=== PATIENT | female | born 1980 ===

== ENCOUNTER 2016-08-30 19:06 | Inpatient (IN) | payer SELFPAY ==
[2016-08-30] MEDS ORDERED: Albuterol-Ipratrop 3 mg / 0.5 (3 ml) UD INH STA ×2 (19:32→19:37)
[2016-08-30 20:08] LABS: BASO % 0.3 % (0.0-2.0); EOS # 0.3 K/uL (0.0-0.7); HEMATOCRIT 38.3 % (34.0-47.0); LYMPH # 0.9 K/uL (1.0-4.3); LYMPH % 6.8 % (20.0-40.0); MEAN CELL VOLUME 87.5 fl (81.0-99.0); MEAN CORPUSCULAR HEMOGLOBIN 28.6 pg (27.0-31.0); MEAN CORPUSCULAR HGB CONC 32.7 g/dL (33.0-37.0); MEAN PLATELET VOLUME 8.7 fl (7.2-11.7); MONO # 0.5 K/uL (0.0-0.8); MONO % 3.8 % (0.0-10.0); NEUT # 11.3 K/uL (1.8-7.0); NEUT % 87.1 % (50.0-75.0); PLATELET COUNT 221 K/uL (130-400); RED CELL DISTRIBUTION WIDTH 13.6 % (11.5-14.5)
[2016-08-30 20:17] LABS: ALKALINE PHOSPHATASE 76 U/L (38-126); ALT/SGPT 39 U/L (9-52); AST/SGOT 26 U/L (14-36); BILIRUBIN,TOTAL 0.4 mg/dl (0.2-1.3); BLOOD UREA NITROGEN 12 mg/dl (7-17); CALCIUM 8.7 mg/dL (8.4-10.2); CARBON DIOXIDE 25 mmol/L (22-30); CHLORIDE 104 mmol/L (98-107); GFR AFRICAN-AMERICAN > 60; GLUCOSE,RANDOM 122 mg/dL (65-105); POTASSIUM 3.5 MMOL/L (3.6-5.0); SODIUM 141 mmol/l (132-148); TOTAL PROTEIN 7.3 G/DL (6.3-8.2)
--- NOTE | 2016-08-30 21:13 | ED PDOC ---
HPI: SOB/CHF/COPD Time Seen by Provider: 08/30/16 19:18 Chief Complaint (Nursing): Shortness Of Breath Chief Complaint (Provider): Shortness of breath History Per: Patient History/Exam Limitations: no limitations Onset/Duration Of Symptoms: Days (1x) Current Symptoms Are (Timing): Still Present Current Respiratory Medications: Albuterol, Other (ventolin pump) Severity: Moderate Associated Symptoms: denies: Chest Pain (chest tightness) Additional Complaint(s): 35 year old female with a pertinent medical history of asthma presents to the ED with complaints of shortness of breath and wheezing that started 24x hours ago and is worsening. She states that she has not had an asthma exacerbation in years and she has been using her ventolin pump and albuterol medication with no relief. She has associated symptoms of a fever and dry cough , and chest tightness. She denies having nausea, vomiting, or diarrhea. Of note: prior to arrival to the ED, ALS gave her solumedrol 125 and 2 duonebs. PMD: patient does not recall. Past Medical History Reviewed: Historical Data, Nursing Documentation, Vital Signs Vital Signs: Last Vital Signs Temp 98.7 F 08/31/16 00:00 Pulse 105 H 08/31/16 00:00 Resp 20 08/31/16 00:00 BP 116/68 08/31/16 00:00 Pulse Ox 100 08/31/16 04:51 - Medical History PMH: Asthma - Surgical History Surgical History: No Surg Hx - Family History Family History: States: No Known Family Hx - Social History Alcohol: None Drugs: Denies - Home Medications Home Medications: Ambulatory Orders Medication Instructions Recorded Albuterol HFA [Ventolin HFA 90 1 puff INH PRN PRN 08/30/16 mcg/actuation (8 g)] - Allergies Allergies/Adverse Reactions: Allergies Allergy/AdvReac Type Severity Reaction Status Date / Time No Known Allergies Allergy Verified 08/30/16 19:07 Review of Systems ROS Statement: Except As Marked, All Systems Reviewed And Found Negative Constitutional: Positive for: Fever Cardiovascular: Negative for: Chest Pain (chest tightness) Respiratory: Positive for: Cough (dry), Shortness of Breath Gastrointestinal: Negative for: Nausea, Vomiting, Abdominal Pain, Diarrhea Physical Exam - Reviewed Nursing Documentation Reviewed: Yes Vital Signs Reviewed: Yes - Physical Exam Appears: Positive for: Well, Non-toxic, In Acute Distress (mild distress) Head Exam: Positive for: ATRAUMATIC, NORMOCEPHALIC Skin: Positive for: Normal Color, Warm, Dry ENT: Positive for: Normal ENT Inspection Cardiovascular/Chest: Positive for: Tachycardia (regular rhythm) Respiratory: Positive for: Wheezing (bilateral expiratory wheezing), Other ( decreased air intake bilaterally. ) Gastrointestinal/Abdominal: Positive for: Normal Exam, Soft. Negative for: Tenderness Neurologic/Psych: Positive for: Alert, Oriented (3x) - Laboratory Results Result Diagrams: 08/30/16 19:58 08/30/16 19:58 - ECG O2 Sat by Pulse Oximetry: 100 (RA) Pulse Ox Interpretation: Normal - Critical Care Total Time (In Min): 30 Nebulizer Treatments/Peak Flow - Duonebs Number of Bronchodilator Doses given?: 2 - Pre/Post Peak Flow Pre Treatment Peak Flow: 2 Post treatment Peak Flow: 2 - Steroid Treatment Steroid: IV (solumedrol 125) Medical Decision Making Medical Decision Makin:18 Initial impression: 35 year old female with wheeze and respiratory distress. Initial plan: * CMP * udip * CBC * magnesium sulfate 2gm/50ml water: 50ml IV * influenza AB * duoneb 3ml INH (2x times) * peak flow pre and post treatment (2x times) * solumendrol 125mg IVP * reevaluation 21:40 Upon reevaluation, patient does not feel significant improvement. She still feels chest tightness and has persistent wheezing. Labs show no acute abnormalities, Chest XRay shows no acute disease. Patient will be admitted for observation under Dr. Blood for asthma exacerbation. Scribe Attestation: Documented by Digna Molina, acting as a scribe for Jose Cruz Hernandez MD. Provider Scribe Attestation: All medical record entries made by the Scribe were at my direction and personally dictated by me. I have reviewed the chart and agree that the record accurately reflects my personal performance of the history, physical exam, medical decision making, and the department course for this patient. I have also personally directed, reviewed, and agree with the discharge instructions and disposition. Disposition - Clinical Impression Clinical Impression: Asthma exacerbation - Disposition Disposition: Routine/Home Disposition Time: 21:45 Condition: STABLE
[2016-08-30 21:58] LABS: EOSINOPHIL 1 % (0-7); NEUTROPHIL 91 % (42-75); TOTAL CELLS COUNTED 100
[2016-08-30] MEDS ORDERED: Benzocaine/Menthol (Cepacol) Lozenge PO ONE (23:04)
--- NOTE | 2016-08-30 23:53 | CP.PCM.HP ---
History of Present Illness - History of Present Illness History of Present Illness: Chief Complaint: SOB HPI: PT is a 35 year old female with a pmhx of asthma normally well controlled on albuterol Inhaler. She is a mild persistent asthmatic presenting to the ED with complaints of shortness of breath and wheezing that started since yesterday progressive in nature. No use of accessory use of muscles. PT has a sore throat and + ve wheezing but no other associated signs or symptoms at this time. Of note: prior to arrival to the ED, ALS gave her solumedrol 125 and 2 duonebs. PMD: patient does not recall. PMHX: Asthma Last Vital Signs Temp 98.9 F 08/30/16 19:07 Pulse 123 H 08/30/16 19:07 Resp 24 08/30/16 21:00 BP 131/104 H 08/30/16 19:07 Pulse Ox 100 08/30/16 21:58 PMH: Asthma Surgical History: No Surg Hx Family History: States: Unknown Family Hx Allergies Allergy/AdvReac Type Severity Reaction Status Date / Time No Known Allergies Allergy Verified 08/30/16 19:07 Present on Admission - Present on Admission Any Indicators Present on Admission: No History of DVT/PE: No History of Uncontrolled Diabetes: No Urinary Catheter: No Decubitus Ulcer Present: No Review of Systems - Constitutional Constitutional: As Per HPI - EENT Eyes: As Per HPI Ears: As Per HPI Nose/Mouth/Throat: As Per HPI - Breasts Breasts: As Per HPI - Respiratory Respiratory: As Per HPI - Gastrointestinal Gastrointestinal: As Per HPI - Genitourinary Genitourinary: As Per HPI - Reproductive: Female Reproductive:Female: As Per HPI - Musculoskeletal Musculoskeletal: As Per HPI - Integumentary Integumentary: As Per HPI - Neurological Neurological: As Per HPI - Psychiatric Psychiatric: As Per HPI Past Patient History - Past Social History Smoking Status: Light Smoker < 10 Cigarettes Daily Alcohol: None Drugs: Denies - PULMONARY Hx Asthma: Yes - PSYCHIATRIC Hx Psychophysiologic Disorder: No - SURGICAL HISTORY Hx Surgeries: No - ANESTHESIA Hx Anesthesia: No Meds Allergies/Adverse Reactions: Allergies Allergy/AdvReac Type Severity Reaction Status Date / Time No Known Allergies Allergy Verified 08/30/16 19:07 Physical Exam - Constitutional Appears: Well - Head Exam Head Exam: ATRAUMATIC, NORMAL INSPECTION, NORMOCEPHALIC - Eye Exam Eye Exam: EOMI, Normal appearance, PERRL Pupil Exam: NORMAL ACCOMODATION, PERRL - ENT Exam ENT Exam: Mucous Membranes Moist, Normal Exam - Respiratory Exam Respiratory Exam: Prolonged Expiratory Phase, Wheezes - Cardiovascular Exam Cardiovascular Exam: REGULAR RHYTHM - GI/Abdominal Exam GI & Abdominal Exam: Normal Bowel Sounds - Extremities Exam Extremities exam: Positive for: normal inspection - Back Exam Back exam: NORMAL INSPECTION - Neurological Exam Neurological exam: CN II-XII Intact, Normal Gait, Oriented x3 - Psychiatric Exam Psychiatric exam: Normal Affect, Normal Mood - Skin Skin Exam: Dry, Intact, Normal Color, Warm Results - Vital Signs Recent Vital Signs: Last Vital Signs Temp 98.9 F 08/30/16 23:24 Pulse 104 H 08/30/16 23:24 Resp 22 08/30/16 23:24 BP 133/58 L 08/30/16 23:24 Pulse Ox 98 08/30/16 22:48 - Labs Result Diagrams: 08/30/16 19:58 08/30/16 19:58 Assessment & Plan - Assessment and Plan (Free Text) Assessment: Pt is a 35 yo obese female that is a mild persistant asthmatic who didnt get well controlled on albuterol, still socially smoking. Plan: admit to medsurg 1) Asthma- will get duoneb and solumedrol along with iv fluids - iv azithromycin - pt saturating well in no obvious respiratory distress 2) high white count - likely reactive in nature will c/w antibiotics 3) low normal K will hydrate gently with K replacement 4) Gi and dvt prophylaxis - Date & Time Date: 08/31/16 Time: 00:04
[2016-08-31 00:09] VITALS: RESP 20
[2016-08-31] MEDS: Benzocaine/Menthol (Cepacol) Lozenge PO PRN ×2 (00:23→01:07)
[2016-08-31] MEDS: Albuterol-Ipratrop 3 mg / 0.5 (3 ml) UD INH PRN ×2 (00:26→07:06)
[2016-08-31] MEDS: Potassium Chloride 20 MEQ in Sodium Chloride 0.45% 1,000 ML IV SCH ×2 (01:01→12:22)
[2016-08-31] MEDS: methylPREDNISolone 40 MG in Sodium Chloride 0.9% 50 ML IVPB SCH ×3 (01:01→16:29)
[2016-08-31] MEDS ORDERED: Albuterol-Ipratrop 3 mg / 0.5 (3 ml) UD INH STA (03:09)
[2016-08-31 09:43] LABS: BASO % 0.1 % (0.0-2.0); HEMATOCRIT 39.6 % (34.0-47.0); LYMPH # 0.6 K/uL (1.0-4.3); LYMPH % 3.8 % (20.0-40.0); MEAN CELL VOLUME 87.6 fl (81.0-99.0); MEAN CORPUSCULAR HEMOGLOBIN 29.1 pg (27.0-31.0); MEAN CORPUSCULAR HGB CONC 33.2 g/dL (33.0-37.0); MONO # 0.2 K/uL (0.0-0.8); MONO % 1.2 % (0.0-10.0); NEUT # 14.3 K/uL (1.8-7.0); NEUT % 94.9 % (50.0-75.0); RED CELL DISTRIBUTION WIDTH 13.6 % (11.5-14.5); WHITE BLOOD COUNT 15.1 K/uL (4.8-10.8)
[2016-08-31 10:04] LABS: BLOOD UREA NITROGEN 10 mg/dl (7-17); CALCIUM 9.4 mg/dL (8.4-10.2); CARBON DIOXIDE 24 mmol/L (22-30); CHLORIDE 106 mmol/L (98-107); GFR AFRICAN-AMERICAN > 60; GLUCOSE,RANDOM 137 mg/dL (65-105); MAGNESIUM 2.6 MG/DL (1.6-2.3); PHOSPHOROUS 3.1 mg/dl (2.5-4.5); SODIUM 143 mmol/l (132-148)
--- NOTE | 2016-08-31 10:07 | CP.PCM.PN ---
Subjective - Date & Time of Evaluation Date of Evaluation: 08/31/16 Time of Evaluation: 09:45 - Subjective Subjective: Hospitalist Progress Note (Patient was seen and examined at 9:45 AM 08/31/16 663- 2) 35 year old female (PMHx Asthma NO history of intubation. (+) Dog at home. NO carpet, NO cieling fan) who was admitted on the night of 08/30/16 for Asthma Exacerbation. Patient had shortness of breath and wheezing that stated on and progressively worsened and therefore she came to the ER. Ventolin Inhaler use at home multiple times this past week but prior to that she has not used it for a long time. She is not on any Asthma maintenance medication. This is the first time that she has presented to the hospital for Asthma since her immigration from [facility] 5 years ago. She continues to smoke about 2 cigarettes per day for the past 15 years. She was started on Duoneb, Solumedrol , and Azithromycin and admitted to the Medical/Surgical Unit for further treatment. ROS: SOB/Wheezing have improved NO cough NO soreness throat/dysphagia/odynophagia Rhinorrhea clear/nasal congestion NO fever but had subjective fever yesterday NO headache currently but had one this morning at 7 AM NO other complaints upon FULL ROS Exam: General: AAOx3, NAD HEENT: NCA, PERRLA, EOMI, NO cervical lymphadenopathy, NO thyromegaly, NO Pharyngeal erythema/exudate, Oral Mucosa and Nasal Turbinates (with green mucous ) are moist Cardiology: NS1 and NS2, NO M/R/G Respiratory: Scattered Expiratory Wheezes. Expiratory phase is longer than Inspiratory Phase. NO accessory muscle use. Speaking in FULL sentences GI: BSx4, Soft, NT, Central Obesity, NO HSM, NO guarding/rebound tenderness Extremities: NO edema, Pulses are strong and equal, Capillary Refill is 2 seconds Neurology: CN II through XII are grossly intact Assessment and Plan: 1). Asthma Exacerbation Solumedrol 40 mg IV Q8H Duoneb Q4H Cepacol 1 alisha PO Q2H PRN Sore Throat Azithromycin 250 mg PO 1x/day 2). Leukocytosis Likely reactive NO fevers Chest X Ray shows NO active disease 3). Hypokalemia NS with 20 mEQ KCl at 75 ml/hour started in the ER and has been discontinued as K has normalized to 4. 4). Prophylactic Measures Pepcid 20 mg PO 1x/day Bilateral SCDs Objective - Vital Signs/Intake and Output Vital Signs (last 24 hours): Temp Pulse Resp BP Pulse Ox 98.6 F 54 L 20 90/54 L 97 08/31/16 07:55 08/31/16 07:55 08/31/16 07:55 08/31/16 07:55 08/31/16 07:55 - Medications Medications: Current Medications Acetaminophen (Tylenol 325mg Tab) 650 mg PO Q6 PRN PRN Reason: Pain, moderate (4-7) Last Admin: 08/31/16 06:53 Dose: 650 mg Albuterol/Ipratropium (Duoneb 3 Mg/0.5 Mg (3 Ml) Ud) 3 ml INH RQ4 PRN PRN Reason: Shortness of Breath Last Admin: 08/31/16 07:06 Dose: 3 ml Azithromycin (Zithromax) 250 mg PO DAILY [facility] Stop: 09/03/16 09:01 Last Admin: 08/31/16 08:42 Dose: 250 mg Benzocaine/Menthol (Cepacol Sore Throat) 1 alisha PO Q2 PRN PRN Reason: Sore Throat Last Admin: 08/31/16 01:07 Dose: 1 alisha Famotidine (Pepcid) 20 mg PO DAILY [facility] Last Admin: 08/31/16 08:42 Dose: 20 mg Potassium Chloride 20 meq/ (Sodium Chloride) 1,010 mls @ 75 mls/hr IV .[id number] [facility] Stop: 08/31/16 23:31 Last Admin: 08/31/16 01:01 Dose: 75 mls/hr Methylprednisolone 40 mg/ (Sodium Chloride) 50 mls @ 100 mls/hr IVPB Q8 LEEANN Last Admin: 08/31/16 08:38 Dose: 100 mls/hr - Labs Labs: 08/31/16 09:00
[2016-08-31] MEDS: Albuterol-Ipratrop 3 mg / 0.5 (3 ml) UD INH SCH ×3 (11:26→20:00)
--- NOTE | 2016-08-31 12:10 | RAD ---
HISTORY: Shortness of breath. Technique: Single view portable erect @ 21:30. COMPARISON: No prior. FINDINGS: LUNGS: No active pulmonary disease. PLEURA: No significant pleural effusion identified, no pneumothorax apparent. CARDIOVASCULAR: Normal. OSSEOUS STRUCTURES: No significant abnormalities. VISUALIZED UPPER ABDOMEN: Normal. OTHER FINDINGS: None. IMPRESSION: No active disease.
[2016-09-01] MEDS: methylPREDNISolone 40 MG in Sodium Chloride 0.9% 50 ML IVPB SCH ×2 (00:02→08:27)
[2016-09-01] MEDS: Albuterol-Ipratrop 3 mg / 0.5 (3 ml) UD INH SCH ×4 (00:06→11:28)
[2016-09-01 06:11] LABS: BASO % 0.1 % (0.0-2.0); HEMATOCRIT 41.6 % (34.0-47.0); LYMPH # 0.7 K/uL (1.0-4.3); LYMPH % 4.2 % (20.0-40.0); MEAN CELL VOLUME 88.1 fl (81.0-99.0); MEAN CORPUSCULAR HEMOGLOBIN 28.9 pg (27.0-31.0); MEAN CORPUSCULAR HGB CONC 32.8 g/dL (33.0-37.0); MEAN PLATELET VOLUME 9.6 fl (7.2-11.7); MONO # 0.4 K/uL (0.0-0.8); MONO % 2.3 % (0.0-10.0); NEUT # 16.4 K/uL (1.8-7.0); NEUT % 93.4 % (50.0-75.0); PLATELET COUNT 256 K/uL (130-400); WHITE BLOOD COUNT 17.5 K/uL (4.8-10.8)
[2016-09-01 06:12] LABS: BLOOD UREA NITROGEN 16 mg/dl (7-17); CALCIUM 9.4 mg/dL (8.4-10.2); CARBON DIOXIDE 22 mmol/L (22-30); CHLORIDE 108 mmol/L (98-107); GFR AFRICAN-AMERICAN > 60; GLUCOSE,RANDOM 140 mg/dL (65-105); POTASSIUM 4.2 MMOL/L (3.6-5.0); SODIUM 144 mmol/l (132-148)
[2016-09-01 07:53] LABS: NEUTROPHIL 96 % (42-75); TOTAL CELLS COUNTED 100
[2016-09-01 08:46] VITALS: BP 119/79; PULSE 83; TEMP 98.1; O2SAT 94
--- NOTE | 2016-09-01 11:50 | CP.PCM.DIS ---
Provider - Provider Date of Admission: 08/31/16 18:48 Attending physician: Devante Blood MD Primary care physician: Dr. Zaman Consults: None Time Spent in preparation of Discharge (in minutes): 40 Hospital Course - Lab Results Lab Results: Most Recent Lab Values WBC 17.5 K/uL (4.8-10.8) H 09/01/16 04:40 RBC 4.72 Mil/uL (3.80-5.20) 09/01/16 04:40 Hgb 13.6 g/dL (12.0-16.0) 09/01/16 04:40 Hct 41.6 % (34.0-47.0) 09/01/16 04:40 MCV 88.1 fl (81.0-99.0) 09/01/16 04:40 MCH 28.9 pg (27.0-31.0) 09/01/16 04:40 MCHC 32.8 g/dL (33.0-37.0) L 09/01/16 04:40 RDW 14.0 % (11.5-14.5) 09/01/16 04:40 Plt Count 256 K/uL (130-400) 09/01/16 04:40 MPV 9.6 fl (7.2-11.7) 09/01/16 04:40 Neut % (Auto) 93.4 % (50.0-75.0) H 09/01/16 04:40 Lymph % (Auto) 4.2 % (20.0-40.0) L 09/01/16 04:40 [place] % (Auto) 2.3 % (0.0-10.0) 09/01/16 04:40 Eos % (Auto) 0.0 % (0.0-4.0) 09/01/16 04:40 Baso % (Auto) 0.1 % (0.0-2.0) 09/01/16 04:40 Neut # 16.4 K/uL (1.8-7.0) H 09/01/16 04:40 Lymph # 0.7 K/uL (1.0-4.3) L 09/01/16 04:40 [place] # 0.4 K/uL (0.0-0.8) 09/01/16 04:40 Eos # 0.0 K/uL (0.0-0.7) 09/01/16 04:40 Baso # 0.0 K/uL (0.0-0.2) 09/01/16 04:40 Total Counted Cancelled 08/31/16 09:00 Neutrophils % (Manual) 96 % (42-75) H 09/01/16 04:40 Band Neutrophils % Cancelled 08/31/16 09:00 Lymphocytes % (Manual) 3 % (20-50) L 09/01/16 04:40 Reactive Lymphs % Cancelled 08/31/16 09:00 Monocytes % (Manual) 1 % (0-10) 09/01/16 04:40 Eosinophils % (Manual) 1 % (0-7) 08/30/16 19:58 Basophils % (Manual) Cancelled 08/31/16 09:00 Metamyelocytes % Cancelled 08/31/16 09:00 Myelocytes % Cancelled 08/31/16 09:00 Promyelocytes % Cancelled 08/31/16 09:00 Blast Cells % Cancelled 08/31/16 09:00 Plasma Cell % (Manual) Cancelled 08/31/16 09:00 Nucleated RBC % Cancelled 08/31/16 09:00 Hypersegmented Polys Cancelled 08/31/16 09:00 Smudge Cells Cancelled 08/31/16 09:00 Toxic Granulation Cancelled 08/31/16 09:00 Dohle Bodies Cancelled 08/31/16 09:00 Gallito Rods Cancelled 08/31/16 09:00 Platelet Estimate Normal (NORMAL) 09/01/16 04:40 Plt Clumps, EDTA Cancelled 08/31/16 09:00 Large Platelets Cancelled 08/31/16 09:00 Giant Platelets Cancelled 08/31/16 09:00 RBC Morphology Cancelled 08/31/16 09:00 Polychromasia Cancelled 08/31/16 09:00 Hypochromasia (manual) Cancelled 08/31/16 09:00 Poikilocytosis (manual Cancelled 08/31/16 09:00 Basophilic Stippling Cancelled 08/31/16 09:00 Anisocytosis (manual) Cancelled 08/31/16 09:00 Microcytosis (manual) Cancelled 08/31/16 09:00 Macrocytosis (manual) Cancelled 08/31/16 09:00 Spherocytes Cancelled 08/31/16 09:00 Sickle Cells Cancelled 08/31/16 09:00 Target Cells Cancelled 08/31/16 09:00 Tear Drop Cells Cancelled 08/31/16 09:00 Ovalocytes Cancelled 08/31/16 09:00 Stomatocytes Cancelled 08/31/16 09:00 Helmet Cells Cancelled 08/31/16 09:00 [place] Bodies Cancelled 08/31/16 09:00 [place] Cells Cancelled 08/31/16 09:00 Acanthocytes (Spur) Cancelled 08/31/16 09:00 Rouleaux Cancelled 08/31/16 09:00 Schistocytes Cancelled 08/31/16 09:00 Sodium 144 mmol/l (132-148) 09/01/16 04:40 Potassium 4.2 MMOL/L (3.6-5.0) 09/01/16 04:40 Chloride 108 mmol/L (98-107) H 09/01/16 04:40 Carbon Dioxide 22 mmol/L (22-30) 09/01/16 04:40 Anion Gap 18 (10-20) 09/01/16 04:40 BUN 16 mg/dl (7-17) 09/01/16 04:40 Creatinine 0.5 mg/dL (0.7-1.2) L 09/01/16 04:40 Est GFR ( Amer) > 60 09/01/16 04:40 Est GFR (Non-Af Amer) > 60 09/01/16 04:40 Random Glucose 140 mg/dL (65-105) H 09/01/16 04:40 Calcium 9.4 mg/dL (8.4-10.2) 09/01/16 04:40 Phosphorus 3.1 mg/dl (2.5-4.5) 08/31/16 09:00 Magnesium 2.6 MG/DL (1.6-2.3) H 08/31/16 09:00 Total Bilirubin 0.4 mg/dl (0.2-1.3) 08/30/16 19:58 AST 26 U/L (14-36) 08/30/16 19:58 ALT 39 U/L (9-52) 08/30/16 19:58 Alkaline Phosphatase 76 U/L (38-126) 08/30/16 19:58 Total Protein 7.3 G/DL (6.3-8.2) 08/30/16 19:58 Albumin 3.8 g/dL (3.5-5.0) 08/30/16 19:58 Globulin 3.6 gm/dL (2.2-3.9) 08/30/16 19:58 Albumin/Globulin Ratio 1.0 (1.0-2.1) 08/30/16 19:58 Influenza Typ A,B (EIA) Negative for flu a/b (NEGATIVE) 08/30/16 20:09 - Hospital Course Hospital Course: 35 year old female (PMHx Asthma NO history of intubation. (+) Dog at home. NO carpet, NO cieling fan) who was admitted on the night of 08/30/16 for Asthma Exacerbation. Patient had shortness of breath and wheezing that stated on and progressively worsened and therefore she came to the ER. Ventolin Inhaler use at home multiple times this past week but prior to that she has not used it for a long time. She is not on any Asthma maintenance medication. This is the first time that she has presented to the hospital for Asthma since her immigration from [facility] 5 years ago. She continues to smoke about 2 cigarettes per day for the past 15 years. She was started on Duoneb, Solumedrol , and Azithromycin and admitted to the Medical/Surgical Unit for further treatment. ROS: SOB/Wheezing are no longer present NO cough NO soreness throat/dysphagia/odynophagia Rhinorrhea clear/nasal congestion NO fever NO headache NO other complaints upon FULL ROS Exam: General: AAOx3, NAD HEENT: NCA, PERRLA, EOMI, NO cervical lymphadenopathy, NO thyromegaly, NO Pharyngeal erythema/exudate, Oral Mucosa and Nasal Turbinates (with green mucous ) are moist Cardiology: NS1 and NS2, NO M/R/G Respiratory: Scattered Expiratory Wheezes are NO LONGER PRESENT. Expiratory phase is equal to Inspiratory Phase. NO accessory muscle use. Speaking in FULL sentences and off of supplemental oxygen GI: BSx4, Soft, NT, Central Obesity, NO HSM, NO guarding/rebound tenderness Extremities: NO edema, Pulses are strong and equal, Capillary Refill is 2 seconds Neurology: CN II through XII are grossly intact Assessment and Plan: 1). Asthma Exacerbation Treated with Duoneb Q6H, Solumedrol 40 IV Q8H, and Azithromycin 2). Leukocytosis Likely reactive NO fevers Chest X Ray shows NO active disease 3). Hypokalemia Resolved 4). Prophylactic Measures Pepcid 20 mg PO 1x/day Bilateral SCDs The following instructions were gone over with the patient in detail today: 1). Follow up with your Primary Care Physician Dr. Zaman after your discharge today as already scheduled by you. 2). Bring a copy of this Discharge Summary with you to your appointment with Dr. Zaman for his review. 3). You were given the following prescriptions upon your discharge and you should have them filled at your pharmacy and use as directed: Prednisone 10 m tab by mouth 09/02/16, 4 tab by mouth 09/03/16, 3 tab by mouth 09/04/16, 2 tab by mouth 09/05/16, and 1 tab by mouth 09/06/16 Azithromycin 250 mg 1 tab by mouth starting on 09/02/16 until finished 4). Continue to use your Ventolin Inhaler at home as needed every 6 hours. 5). You will need to be seen by a lung doctor to have your lung volumes measured. Please obtain consultation for a lung doctor through Dr. Zaman. 6). YOU MUST STOP SMOKING!!!! Ibrahima Tomlin D.O. Discharge Exam - Head Exam Head Exam: ATRAUMATIC, NORMOCEPHALIC Discharge Plan - Follow Up Plan Condition: STABLE Disposition: HOME/ ROUTINE Instructions: Asthma (DC)
== END 2016-09-01 12:58 | disposition home or self-care (01) | DRG 203 ==
LOC: H.ER 19:06 → H.ERHOLD 21:44 → H.MEDSURG1 23:33 → OBSVTOIN 08-31 18:48
PROVIDERS: ADMIT Internal Medicine; ATTEND Internal Medicine
DX: J45.31 Mild persistent asthma with (acute) exacerbation (principal); E87.6 Hypokalemia; E66.9 Obesity, unspecified; F17.210 Nicotine dependence, cigarettes, uncomplicated; Z68.33 Body mass index [BMI] 33.0-33.9, adult; D72.829 Elevated white blood cell count, unspecified